=== PATIENT | male | born 1990 | race African-American/Black ===

== ENCOUNTER 2017-03-08 19:04 | Emergency (ER) | payer SELFPAY ==
--- NOTE | 2017-03-08 19:20 | ED Physician Chart ---
Chief Complaint/HPI - Patient Information Date Seen:: 03/08/17 Time Seen:: 19:06 Chief Complaint:: back pain History of Present Illness:: 26-year-old old male complains of acute, constant, moderate to severe, 10 out of 10 at worst, worse with weight lifting and bending, nonradiating, low back pain that started on Wednesday when he was ankush diving and hyper extended his back on entry into the water. He took [place] for pain persisted. Denies urinary incontinence, urinary retention, numbness, tingling, chest pain, nausea , vomiting, dysuria, gross hematuria, abdominal pain, headache, acute vision changes. Allergies:: Allergies Allergy/AdvReac Type Severity Reaction Status Date / Time Antihistamines - Alkylamine Allergy Verified 03/08/17 19:11 Vitals:: Vital Signs - 8 hr 03/08/17 19:14 Temp 98.3 F HR 62 RR 17 BP 131/48 O2 Sat % 97 Historian:: Patient Review:: Nurse's Note Reviewed Review of Systems - Review of Systems Other: Complete system review otherwise unremarkable except as noted in history of present illness. Past Medical History - Past Medical History Past Medical History: No significant medical hx Family History: None Social History: Non Smoker, No Alcohol, No Drug Use, Employed Surgical History: None Psychiatricy History: None Medication: None Family Medical History - Family Member Mother History Unknown: Yes Ethnicity: Non- Physical Exam - Physical Examination Other:: INITIAL VITAL SIGNS: Reviewed by me GENERAL: Alert and interactive. No acute distress HEAD: Head is normocephalic and atraumatic EYES: EOMI. PERRL. No scleral icterus. No conjunctival injection ENT: Moist mucous membranes. NECK: Supple. No masses. Full range of motion RESPIRATORY: No tachypnea. Clear breath sounds bilaterally. No wheezing, rales, or rhonchi CV: Regular rate and rhythm. No murmurs, rubs, or gallops ABDOMEN: Soft, non-distended, non-tender. No guarding. No rebound. No masses. EXTREMITIES: No deformity. No cyanosis. No edema. Straight leg test positive bilaterally at about 45-50 SKIN: Warm and dry. No obvious rashes. NEUROLOGIC: Alert and oriented. Face is symmetric. Speech is normal. Moves all extremities equally. Motor and sensory distally intact. No saddle anesthesia. Labs/Radiology/EKG Results - Radiology Results Results: CT lumbar spine without contrast NAD ED Septic Shock - . Is Septic Shock (SBP<90, OR Lactate>4 mmol\L) present?: No - <6hrs of presentation: Vital Signs: Vital Signs - 8 hr 03/08/17 19:14 Temp 98.3 F HR 62 RR 17 BP 131/48 O2 Sat % 97 Reassessment (Disposition) - Reassessment Reassessment:: Patient suffered back injury Wednesday when doing ankush diving. Hyperextended his back. CT is unremarkable for any acute findings. Straight-leg test is positive bilaterally about 45. Did give intramuscular Toradol which helped the pain. Likely suffered from a strain. We'll prescribe ibuprofen. Recommend follow-up PCP 1-2 days. May need physical therapy. Return to ER precautions given. Patient says he understands and agrees with plan. Blood pressure was noted to be elevated over 120/80. There were no signs of hypertension. Discussed the findings with the patient and recommended that the patient follow up with the primary care physician regarding the elevated blood pressure. - Diagnosis Diagnosis:: Acute low back pain due to acute low back strain Elevated blood pressure without diagnosis of hypertension - Aftercare/Follow up Instructions Aftercare/Follow-Up Instructions:: Counseled pt regarding lab results/diagnosis & need follow up, Refer to Discharge Instructions Medication Prescribed:: Ibuprofen - Patient Disposition Discharge/Transfer:: Home Time:: 20:09 Condition at Disposition:: Improved ED Discharge Plan - Patient Disposition Admit/Discharge/Transfer: PT DISCHARGED HOME Condition at Disposition: Improved Instructions: Lumbosacral Strain
--- NOTE | 2017-03-09 08:17 | Diagnostic Imaging Report ---
CT lumbar spine without IV contrast HISTORY: Trauma COMPARISON: None Technique: Axial images were obtained from the lower thoracic spine to the upper sacrum without IV contrast. Reconstructions were made. total DLP: [id number], CTDI41.2 Findings: No evidence of an acute fracture or subluxation. The disc space heights are preserved. Small posterior disc bulges are seen extending from L3 through S1 largest at S1 measuring 3 mm. There is mild bilateral neural foraminal narrowing at L4/L5 and L5/S1. 2 mm nonobstructive right renal stone is incidentally noted. IMPRESSION: No evidence of an acute fracture or subluxation Mild degenerative changes with small posterior disc bulges extending from L3 to S1. If clinical indicated, follow up MRI would provide additional detail and assessment. 2 mm nonobstructive right renal stone incidentally noted.
== END 2017-03-08 20:37 | disposition home or self-care (01) ==
LOC: ER 19:04
DX: S39.012A Strain of muscle, fascia and tendon of lower back, initial encounter (principal); R03.0 Elevated blood-pressure reading, without diagnosis of hypertension; Z88.8 Allergy status to other drugs, medicaments and biological substances; X58.XXXA Exposure to other specified factors, initial encounter; Y93.89 Activity, other specified; Y92.89 Other specified places as the place of occurrence of the external cause; Y99.8 Other external cause status
CPT/HCPCS: 99284; 96372; 72131; J1885; Z7502